=== PATIENT | male | born 1960 | race African-American/Black ===

== ENCOUNTER 2017-03-11 03:10 | Emergency (ER) | payer SELFPAY ==
[~2017-03-11] VITALS: Ht 175.3 cm; Wt 59.0 kg
[2017-03-11 03:10] VITALS: Ht 175.3 cm; Wt 59.0 kg
[2017-03-11] MEDS ORDERED: ONDANSETRON 4 MG INJ ONE (03:20)
[2017-03-11 03:27] LABS: ABNORMAL IP MESSAGE 1; ADD SCAN DIFF NO; BASOPHIL # 0.1 10^3/ul (0.0-0.1); BASOPHILS % 0.8 % (0.0-2.0); EOSINOPHILS # 0.8 10^3/ul (0.0-0.5); EOSINOPHILS % 4.7 % (0.0-7.0); HEMOGLOBIN 14.3 g/dl (14.0-18.0); LYMPHOCYTES # 5.4 10^3/ul (0.8-2.9); MEAN CORPUSCULAR HEMOGLOBIN 32.4 pg (29.0-33.0); MEAN CORPUSCULAR HGB CONC 35.8 g/dl (32.0-37.0); MEAN CORPUSCULAR VOLUME 90.7 fl (82.0-101.0); MEAN PLATELET VOLUME 10.7 fl (7.4-10.4); MONOCYTE # 1.1 10^3/ul (0.3-0.9); MONOCYTES % 6.9 % (0.0-11.0); NEUTROPHIL # 8.4 10^3/ul (1.6-7.5); NEUTROPHILS % 52.9 % (39.0-77.0); PLATELET COUNT 236 10^3/UL (140-415); RED BLOOD COUNT 4.41 10^6/ul (4.70-6.10); RED CELL DISTRIBUTION WIDTH 13.2 % (11.5-14.5); WHITE BLOOD COUNT 15.9 10^3/ul (4.8-10.8)
[2017-03-11] MEDS ORDERED: LABETALOL HCL 20MG INJ ONE (03:34)
--- NOTE | 2017-03-11 03:35 | RADRPT ---
PROCEDURE: CT brain without contrast. CLINICAL INDICATION: Stroke. TECHNIQUE: CT scan of the brain was performed on a multi-detector high-resolution CT scanner. Co ntiguous axial images were obtained from the skull base to the vertex without intravenous contrast. Coronal and sagittal reformatted images were also obtained. Images were reviewed on the PACS works tation. One or more of the following dose reduction techniques were used: - Automated exposure control. - Adjustment of the mA and/or kV according to patient size. - Use of iterative reconstruction technique. Exam CTD/vol = 45.01 mGy. Total exam DLP = 810.25 mGy-cm. COMPARISON: None. FINDINGS: The ventricles including bilateral lateral and third ventricles are mildly dilated. The ventricles and cortical sulci are prominent consistent with mild age related volume loss. There are patchy are as of low attenuation within the periventricular white matter consistent with mild chronic ischemic changes secondary to small vessel disease. There is no mass effect or midline shift. There is no i ntracranial hemorrhage or abnormal extra-axial collection. There are atherosclerotic calcifications within bilateral distal internal carotid arteries. The calvarium is intact. There is no evidence of fracture. There is mild mucoperiosteal disease wi thin scattered ethmoid air cells and maxillary sinuses bilaterally. Bilateral mastoid air cells are clear. IMPRESSION: Mild hydrocephalus. Follow-up is recommended. Mild age related volume loss and chronic ischemic white matter disease. Cerebral atherosclerosis. Mild paranasal sinus inflammatory disease. A call report was made to Dr. Lara at 03:33 a.m. .Ebenezer Pardo MD, MD Date Time Electronically viewed and signed by .Ebenezer Pardo MD, MD on 03/11/2017 03:35 .T/
[2017-03-11 03:37] LABS: ALBUMIN 3.7 g/dl (3.3-4.9); INR 0.87; PARTIAL THROMBOPLASTIN TIME 21.1 Sec (25.0-35.0); PROTIME 11.8 Sec (12.2-14.2); PT RATIO 0.9
[2017-03-11 03:39] LABS: BILIRUBIN,INDIRECT 0.2 mg/dl (0-1.1); BILIRUBIN,TOTAL 0.2 mg/dl (0.2-1.3); CREATININE 2.09 mg/dl (0.61-1.24)
[2017-03-11 03:40] LABS: ALBUMIN/GLOBULIN RATIO 1.27; TOTAL PROTEIN 6.6 g/dl (6.1-8.1)
[2017-03-11 03:41] LABS: CALCIUM 9.4 mg/dl (8.4-10.2)
[2017-03-11 03:52] LABS: TROPONIN-I 0.031 ng/ml (0.00-0.12)
[2017-03-11 03:53] LABS: POTASSIUM 2.5 mmol/L (3.5-5.1)
[2017-03-11] MEDS: ONDANSETRON 4 MG INJ IV STA ×2 (03:59→04:26)
[2017-03-11] MEDS ORDERED: LABETALOL HCL 20MG INJ IV ONE ×3 (04:00→05:30)
[2017-03-11] MEDS ORDERED: ALTEPLASE (tPA) 1 MG/ML BOLUS SYG IV* ONE (04:00)
[2017-03-11] MEDS ORDERED: SOD CHLORIDE 0.9% 50 ML IV ONE (04:00)
[2017-03-11] MEDS ORDERED: ALTEPLASE 100 MG INJ IV* ONE (04:00)
[2017-03-11] MEDS ORDERED: niCARdipine-D5W 0.1MG/ML DRIP 200 ML IV SCH (04:00)
--- NOTE | 2017-03-11 04:01 | STROKE ---
Date/Time of Note Date/Time of Note DATE: 03/11/17 TIME: 03:49 Patient Information General Patient location: emergency Arrival Date Onset Time: 02:30 Age 56 Gender male Weight POC Glucose Glucose Result Bedside Glucose - 72 Hours Test 03/11/17 03:27 Bedside Glucose 206mg/dL (70-220) Vital Signs Vital Signs Vital Signs Date Time Temp Pulse Resp B/P Pulse Ox O2 Delivery O2 Flow Rate FiO2 03/11/17 03:38 Nasal Cannula 2 03/11/17 03:32 98.6 94 15 243/104 96 Patient History Current Medications Allergies: Coded Allergies: Unknown: Unable to obtain (Unverified , 03/11/17) Labs Hematology Labs Hematology Test 03/11/17 03:00 White Blood Count 15.910^3/ul (4.8-10.8) Red Blood Count 4.4110^6/ul (4.70-6.10) Hemoglobin 14.3g/dl (14.0-18.0) Hematocrit 40.0% (42.0-52.0) Mean Corpuscular Volume 90.7fl (82.0-101.0) Mean Corpuscular Hemoglobin 32.4pg (29.0-33.0) Mean Corpuscular Hemoglobin Concent 35.8g/dl (32.0-37.0) Red Cell Distribution Width 13.2% (11.5-14.5) Platelet Count 71042^3/UL (140-415) Mean Platelet Volume 10.7fl (7.4-10.4) Neutrophils % 52.9% (39.0-77.0) Lymphocytes % 34.0% (15.0-51.0) Monocytes % 6.9% (0.0-11.0) Eosinophils % 4.7% (0.0-7.0) Basophils % 0.8% (0.0-2.0) Nucleated Red Blood Cells % 0.0/100WBC (0.0-0.0) Neutrophils # 8.410^3/ul (1.6-7.5) Lymphocytes # 5.410^3/ul (0.8-2.9) Monocytes # 1.110^3/ul (0.3-0.9) Eosinophils # 0.810^3/ul (0.0-0.5) Basophils # 0.110^3/ul (0.0-0.1) Nucleated Red Blood Cells # 0.010^3/ul (0.0-0.0) Chemistry Labs Chemistry Test 03/11/17 03:27 Bedside Glucose 206mg/dL (70-220) Coagulation Labs: Coagulation Test 03/11/17 03:00 Prothrombin Time 11.8Sec (12.2-14.2) Prothrombin Time Ratio 0.9 INR International Normalized Ratio 0.87 Activated Partial Thromboplast Time 21.1Sec (25.0-35.0) History & Physical Patient History Notes Pt Hx Reviewed History of Present Illness 56yo M presents with acute onset speech difficulty. Symptoms began at 2:30pm. Patient denies any previous neurologic symptoms. Review of Systems Constitutional: no symptoms reported EENTM: no symptoms reported Respiratory: no symptoms reported Cardiovascular: no symptoms reported Gastrointestinal: no symptoms reported Genitourinary: no symptoms reported Musculoskeletal: no symptoms reported Skin: no symptoms reported Psychiatric/Neurological: no symptoms reported All Other Systems: Reviewed and Negative NIH Stroke Scale NIH Stroke Scale 1A - Level of Conciousness: 0 - Alert keenly [id number] LOC Questions: 0 - Answers both [id number] - LOC Commands: 0 - Performs both tasks2 - Best Gaze: 0 - Normal3 - Visual: 0 - No visual loss4 - Facial Palsy: 0 - No visual loss 5A - Motor Arm - Left: 0 - No [id number] - Motor Arm - Right: 0 - No [id number] - Motor Leg - Left: 0 - No [id number] - Motor Leg - Right: 0 - No drift7 - Limb Ataxia: 3 - Present in two limbs8 - Sensory: 0 - Normal9 - Best Language: 1- Mild to moderate aphasiaDysarthria: 1 - Mild to [id number] - Extinction and inattentio: 0 - No abnormalityTotal Score: 5 Date/Time Recorded DATE: 03/11/17 TIME: 03:49 Submitted By Gary Garcia t-PA Imaging Review Imaging Reviewed: Yes Date/Time Imaging Reviewed DATE: 03/11/17 TIME: 03:49 Imaging Findings No acute changes. Dilated ventricles. t-PA Administration Recommendation: Yes Weight t-PA Recommendation Date/Time 15:50, but administration delayed due to elevated BP Recommedation submitted by Gary Garcia Recommendations Impression Diagnosis acute ischemic stroke Recommendation 56yo M presents with acute onset speech difficulty. Neurological exam is notable for severe dysmetria in all four extremities, and mild aphasia with mild slurred speech. I believe the patient is having an acute ischemic stroke. I reviewed the risks and benefits of IV TPA in detail with the patient and he is agreeable to my recommendation for IV TPA, once blood pressure is < 185 systolic. I also recommend stat CTA of the head and neck to determine if the patient is a neurointerventional candidate. Further workup would be recommended to include MRI Brain and transthoracic ecocardiogram. Post t-PA Order recommendation: Document q15 min vitals Document q15 min neuro checks Document q15 min bleeding checks Refer to t-PA Order Sets Diagnostic Labs: Lipid Proile Hgb A1C CMP CBC w/Diff Coags Urinaysis Therapy: Physical Therapy Speech Therapy Occupational Therapy Misc. Recommendations: Bedside Swallow Evaluation Pnumatic Compression Devices Avoid Whitehead Catheter Stroke Education Smoking Education GARY GARCIA March 11, 2017 03:59
[2017-03-11] MEDS ORDERED: SOD CHLORIDE 0.9% 100 ML ONE (04:12)
[2017-03-11] MEDS ORDERED: IOHEXOL 300MG/ML 150 ML BTL ONE (04:12)
--- NOTE | 2017-03-11 04:22 | RADRPT ---
PROCEDURE: Chest. CLINICAL INDICATION: Chest pain. TECHNIQUE: Single frontal view of the chest was obtained. COMPARISON: None. FINDINGS: The cardiac silhouette is within normal limits. The aortic arch is unremarkable. There is no focal consolidation, vascular congestion or pleural effusion. There is no pneumothorax. IMPRESSION: No evidence for active cardiopulmonary disease. .Ebenezer Pardo MD, MD Date Time Electronically viewed and signed by .Ebenezer Pardo MD, on 03/11/2017 04:22 .T/
--- NOTE | 2017-03-11 05:28 | RADRPT ---
PROCEDURE: CT angiogram of the head and neck with contrast. CLINICAL INDICATION: Stroke. TECHNIQUE: CT angiogram of the head and neck was performed on a multi-detector high-resolution CT scanner. Contiguous axial images were obtained after the dynamic injection of 100 cc Omnipaque 300 intravenous contrast. Coronal and sagittal as well as maximal intensity projection reformations we re obtained. 3-D post processing was also performed. Images were reviewed on a PACS workstation. One or more of the following dose reduction techniques were used: - Automated exposure control. - Adjustment of the mA and/or kV according to patient size. - Use of iterative reconstruction technique. Exam CTD/vol = 13.59 mGy. Total exam DLP = 562.93 mGy-cm. COMPARISON: None. FINDINGS: Neck: The visualized aortic arch and proximal great vessels demonstrate scattered atherosclerotic ca lcifications. Bilateral common carotid arteries are normal course and caliber. There is moderate, mixed atherosclerotic plaque within bilateral carotid bifurcations and proximal internal carotid art eries. There is approximately 45% stenosis of the right proximal internal carotid artery per NASCET criteria. Bilateral external carotid arteries are of normal course and caliber. There is occlusion of the right proximal vertebral artery to the level of the C5. The mid to distal cervical vertebra l artery tapers to a normal caliber. The right vertebral artery is dominant and the left vertebral artery is hypoplastic. There are scattered atherosclerotic calcifications along the left vertebral artery with areas of ejkp-[id number]-[id number] stenosis. There is no evidence of aneurysm or dissection. Brain: Bilateral distal internal carotid arteries are normal course and caliber with scattered athe rosclerotic calcifications. Bilateral anterior and middle cerebral arteries are within normal limit s. The right distal vertebral artery is dominant and the left distal vertebral artery is hypoplasti c.. The basilar artery is intact. Bilateral posterior cerebral arteries are within normal limits. There is no significant stenosis or occlusion. There is no evidence of aneurysm or vascular malfor mation. The venous structures are unremarkable. IMPRESSION: Occluded right proximal cervical vertebral artery. Moderate atherosclerotic plaque within bilateral carotid bifurcations with approximately 45% stenosi s of the right proximal internal carotid artery per NASCET criteria. Dominant right distal vertebral artery and hypoplastic left distal vertebral artery. Atherosclerotic calcifications along the left cervical vertebral artery with areas of qwni-mb-vyvone te stenosis. .Ebenezer Pardo MD, MD Date Time Electronically viewed and signed by .Ebenezer Pardo MD, MD on 03/11/2017 05:28 .T/
[2017-03-11] MEDS ORDERED: POTASSIUM CHLORIDE 250 ML IVPB SCH (05:30)
--- NOTE | 2017-03-11 05:54 | ERA ---
ER Documentation Chief Complaint Date/Time DATE: 03/11/17 TIME: 05:50 Chief Complaint BIB [facility] WITH HTN, RINGING IN EARS, SLURRED SPEECH. LKWT 30 MIN AGO (JENY HUNG) HPI This is a 56-year-old male brought in by [facility] with sudden onset of ringing in ears and slurred speech. Last normal time was 30 minutes prior to arrival. Patient with known history of hypertension taking Bystolic. Patient is able to answer questions but does have slurred speech and has dysmetria in all 4 extremities upon initial examination code stroke called immediately. Telemetry neurologist called immediately. (JENY HUNG) ROS All systems reviewed and are negative except as per history of present illness. (JENY HUNG) Medications Home Meds Unable to Obtain Active Prescriptions or Reported Meds Allergies Allergies: Coded Allergies: No Known Allergy (Unverified , 03/11/17) PMhx/Soc Medical and Surgical Hx: pt denies Surgical Hx History of Surgery: No Anesthesia Reaction: No Hx Neurological Disorder: No Hx Respiratory Disorders: No Hx Cardiac Disorders: Yes (HTN) Hx Psychiatric Problems: No Hx Miscellaneous Medical Probl: No Hx Alcohol Use: No Hx Substance Use: No Hx Tobacco Use: No Smoking Status: Never smoker (JENY HUNG) Physical Exam Vitals Vital Signs Date Time Temp Pulse Resp B/P Pulse Ox O2 Delivery O2 Flow Rate FiO2 03/11/17 07:02 98.6 79 12 154/77 98 Nasal Cannula 2.0 03/11/17 06:32 82 15 142/77 95 Nasal Cannula 2.0 03/11/17 06:17 80 17 120/81 95 Nasal Cannula 2.0 03/11/17 06:02 80 10 117/72 96 Nasal Cannula 2.0 03/11/17 05:47 74 10 149/66 100 Nasal Cannula 2.0 03/11/17 05:32 98.6 72 15 143/79 100 Nasal Cannula 2.0 03/11/17 05:17 98.6 75 10 167/92 98 Nasal Cannula 2.0 03/11/17 05:02 98.6 78 11 181/87 99 Nasal Cannula 2.0 03/11/17 04:47 98.6 78 10 193/93 96 Nasal Cannula 2.0 03/11/17 04:32 98.6 78 10 184/87 98 Nasal Cannula 2.0 03/11/17 04:04 71 267/116 03/11/17 03:38 Nasal Cannula 2 03/11/17 03:32 98.6 94 15 243/104 96 Room Air 03/11/17 03:10 98.6 79 12 (MEDARDO SALAS DO) Physical Exam Const: [] Head: Atraumatic Eyes: Normal Conjunctiva ENT: Normal External Ears, Nose and Mouth. Neck: Full range of motion..~ No meningismus. Resp: Clear to auscultation bilaterally Cardio: Regular rate and rhythm, no murmurs Abd: Soft, non tender, non distended. Normal bowel sounds Skin: No petechiae or rashes Back: No midline or flank tenderness Ext: No cyanosis, or edema Neur: Awake and alert. Slight slurring of speech. Dysmetria in all 4 extremities. Psych: Normal Mood and Affect (JENY HUNG) Result Diagram: 03/11/17 0300 03/11/17 0300 Results 24 hrs Laboratory Tests Test 03/11/17 03:00 03/11/17 03:27 03/11/17 07:03 White Blood Count 15.910^3/ul Red Blood Count 4.4110^6/ul Hemoglobin 14.3g/dl Hematocrit 40.0% Mean Corpuscular Volume 90.7fl Mean Corpuscular Hemoglobin 32.4pg Mean Corpuscular Hemoglobin Concent 35.8g/dl Red Cell Distribution Width 13.2% Platelet Count 58901^3/UL Mean Platelet Volume 10.7fl Neutrophils % 52.9% Lymphocytes % 34.0% Monocytes % 6.9% Eosinophils % 4.7% Basophils % 0.8% Nucleated Red Blood Cells % 0.0/100WBC Neutrophils # 8.410^3/ul Lymphocytes # 5.410^3/ul Monocytes # 1.110^3/ul Eosinophils # 0.810^3/ul Basophils # 0.110^3/ul Nucleated Red Blood Cells # 0.010^3/ul Prothrombin Time 11.8Sec Prothrombin Time Ratio 0.9 INR International Normalized Ratio 0.87 Activated Partial Thromboplast Time 21.1Sec Sodium Level 134mmol/L Potassium Level 2.5mmol/L Chloride Level 93mmol/L Carbon Dioxide Level 30mmol/L Anion Gap 14 Blood Urea Nitrogen 26mg/dl Creatinine 2.09mg/dl Glucose Level 218mg/dl Hemoglobin A1c 5.6% Calcium Level 9.4mg/dl Total Bilirubin 0.2mg/dl Direct Bilirubin 0.00mg/dl Indirect Bilirubin 0.2mg/dl Aspartate Amino Transf (AST/SGOT) 24IU/L Alanine Aminotransferase (ALT/SGPT) 22IU/L Alkaline Phosphatase 80IU/L Troponin I 0.031ng/ml Total Protein 6.6g/dl Albumin 3.7g/dl Globulin 2.90g/dl Albumin/Globulin Ratio 1.27 Bedside Glucose 206mg/dL 276mg/dL Current Medications Medications (Trade) Dose Ordered Sig/Ade Route PRN Reason Start Time Stop Time Status Last Admin Dose Admin Ondansetron HCl (Zofran Inj) 4 mg ONCE STAT IV 03/11/17 03:19 03/11/17 03:20 DC 03/11/17 04:26 Labetalol HCl (Labetalol) 20 mg ONCE ONCE IV 03/11/17 04:00 03/11/17 04:01 DC 03/11/17 03:25 Labetalol HCl 20 mg 20 mg STK-MED ONCE .ROUTE 03/11/17 03:34 03/11/17 03:35 DC Nicardipine HCl (Cardene Iv) 200 ml @ 50 mls/hr TITRATE IV 03/11/17 04:00 03/11/17 07:35 DC 03/11/17 04:01 Alteplase, Recombinant (Activase) 5.3 mg BOLUS OVER 1 MIN ONCE IV* 03/11/17 04:00 03/11/17 04:01 DC 03/11/17 04:27 Alteplase, Recombinant 47.8 mg 47.8 mg ISCHEMIC STROKE ONCE IV* 03/11/17 04:00 03/11/17 04:01 DC 03/11/17 04:27 Sodium Chloride (NS) 50 ml @ 0 mls/hr FLUSH AFTER TPA ONCE IV 03/11/17 04:00 03/11/17 04:01 DC 03/11/17 05:17 Labetalol HCl 20 mg 20 mg ONCE ONCE IV 03/11/17 04:30 03/11/17 04:31 DC 03/11/17 04:47 Sodium Chloride (NS) 100 ml @ ud STK-MED ONCE .ROUTE 03/11/17 04:12 03/11/17 04:13 DC 03/11/17 05:02 Iohexol (Omnipaque 300mg/ ml) 150 ml STK-MED ONCE .ROUTE 03/11/17 04:12 03/11/17 04:13 DC 03/11/17 05:02 Labetalol HCl 20 mg 20 mg ONCE ONCE IV 03/11/17 05:30 03/11/17 05:31 DC 03/11/17 05:17 Potassium Chloride (KCl 40 MEQ/250 ML NS) 250 ml @ 62.5 mls/hr Q4H IVPB 03/11/17 05:30 03/11/17 07:35 DC 03/11/17 05:41 (MEDARDO SALAS DO) Procedures/MDM EKG: Rate/Rhythm: Normal Sinus Rhythm QRS, ST, T-waves: No changes consistent w/ acute ischemia Impression: No evidence of ischemia or arrhythmia Chest X-ray 1V Interpreted by me: Soft Tissue: No acute abnormalities Bones: No acute abnormalities Mediastinum/Cardiac Silhouette/Lungs: No acute abnormalities Head CT read as negative for acute stroke CT angiogram of the head and neck shows proximal vertebral artery occlusion Medical decision making: The 56-year-old male who has what looks to be an acute stroke. He is responded well to TPA bolus and infusion. I spoke to telemetry neurologist. Recommended CTA post TPA infusion. Patient received TPA and concurrently had a CT angiogram of the head and neck. I discussed the case with telemetry neurology and CTA results returned approximately 2 hours past last normal time. Per telemetry neurologist, lesions noted would not change clinical outcome of patient and patient should be admitted for observation to intensive care unit here with close neurological observation. A call was made to [facility] for transfer purposes for neuro intervention, however they did not return the call. [facility] transfer program was also contacted with and they also did not return the call. Messages were left for both systems. Given that the telemetry neurologist feels comfortable with the patient remaining here, I feel the patient can also be managed here unless the patient deteriorates. Critical Care: Time: 66 minutes Treatments/Evaluations: Close monitoring and treatment of unstable vital signs, cardiorespiratory, and neurologic status, while maintaining tight balance of fluid, respiratory, and cardiac interventions. (JENY HUNG) I signed out this patient was receiving TPA and was on a Cardene drip for his hypertensive emergency and was still in and out of consciousness with mental confusion. Subsequently Dr. Lozano called from [facility] as a call had been placed to facility.. Gave him a history of the patient and he asked if we would still like the patient to be transferred for endovascular intervention. Said he would be willing to take the patient. 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 Arrangements were made and [place] [facility] [place] still [place] Cardene drip and was transferred via critical care ambulance. His daughter still at bedside was immediately notified of the pending transfer. (MEDARDO SALAS DO) Departure Diagnosis: Primary Impression: Stroke Qualified Code: I63.9 - Cerebrovascular accident (CVA), unspecified mechanism Condition: Critical JENY HUNG March 11, 2017 05:54 MEDARDO SALAS DO March 11, 2017 07:47
[2017-03-11 07:02] VITALS: BP 154/77; PULSE 79; RESP 12; TEMP 98.6
== END 2017-03-11 07:31 | disposition short-term general hospital (02) ==
LOC: E/R 03:10
DX: I63.9 Cerebral infarction, unspecified (principal); R40.2242 Coma scale, best verbal response, confused conversation, at arrival to emergency department; R47.81 Slurred speech; R40.2142 Coma scale, eyes open, spontaneous, at arrival to emergency department; R40.2362 Coma scale, best motor response, obeys commands, at arrival to emergency department
CPT/HCPCS: 36415; 37195; 70450; 70496; 70498; 71010; 80053; 82962; 83036; 84484; 85025; 85610; 85730; 93005; 96365; 96366; 96375; 96376; 99291; J2405; J2997; J3480; Q9967